=== PATIENT | male | born 1970 | race Two or more races ===

== ENCOUNTER 2017-02-13 17:18 | Emergency (ER) | payer SELFPAY ==
[~2017-02-13] VITALS: Ht 182.9 cm; Wt 79.4 kg
[2017-02-13 17:54] VITALS: BP 129/88
[2017-02-13] MEDS ORDERED: NAPR500T8 PO (18:29)
[2017-02-13] MEDS ORDERED: HYDR-971 PO (18:29)
[2017-02-13] MEDS ORDERED: AMOX875T PO (18:29)
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
[2017-02-13] MEDS ORDERED: HYDROcodone/APAP 5/325MG 1 TAB TABLET PO ONE (18:45)
== END 2017-02-13 18:37 | disposition home or self-care (01) ==
LOC: ER 17:18
DX: K04.7 Periapical abscess without sinus (principal); K02.9 Dental caries, unspecified
CPT/HCPCS: 99283